=== PATIENT | female | born 1985 | race Caucasian/White ===

== ENCOUNTER → 2016-06-27 | Outpatient (CLI) | payer OTHER ==
[~2016-06-27] MED LIST: ALPR0.2550 PO; AMIT25TA9 PO; BETH10TA PO; Docusate Sodium PO; HYDR-1231 PO; HYDR-34 PO; HYDR-3583 PO; HYDR-3714 PO; HYDR-757 PO; HYDR1TAB PO; IBP600T1 PO; Ibuprofen PO; METR500T PO; NAPR-243 PO; PENT100C5 PO; TOPI25TA2 PO; YAZ
--- OUTSIDE RECORDS SUMMARY | 2016-06-27 10:02 | XMS REPORT | Continuity of Care Document ---
Author Author [facility] Organization [facility] Address Unknown Phone Unavailable Care Team Providers Care Transportation Assistant Name Role Phone ALLEN BETANCOURT MD PCP Insurance Providers Payer Name Policy Number Subscriber Name Relationship [employer] [id number] Leah Rosenbaum 18 Self / Same As Patient Advance Directives Directive Response Recorded Date/Time Advance Directives No 02/09/14 11:49pm Health Care Power of Senior Project Accountant No 02/09/14 11:49pm Organ Donor Yes 02/09/14 11:49pm Resuscitation Status Full Code 02/09/14 11:49pm Problems Medical Problems Problem Onset Date Status Abdominal pain, left lower quadrant Unknown Active Medications Medication Dose Route Sig Days/Qty Instructions Order Date Discontinued Date Status [Namrata] 04/10/09 04/14/10 Discontinued Metronidazole (Flagyl) 1 Each PO TWICE A DAY 7 Days 04/10/09 04/10/09 Discontinued Acetaminophen/Hydrocodone Bitart 1 Ea PO Q 4 - 6 HR PRN 10 Qty 01/15/10 Discontinued Naproxen 1 Each PO BID - TID PRN 60 Qty 01/15/10 Active Pentosan Polysulfate Sodium 100 Mg PO THREE TIMES A DAY 90 Qty Active Amitriptyline HCl (Elavil) 1 Each PO BEDTIME 30 Qty 04/20/10 Active Ibuprofen 600 Mg PO GIVE EVERY 6 HR ON SCHEDULE 40 Qty 04/20/10 Discontinued Acetaminophen/Hydrocodone Bitart 1 - 2 Each PO Q4HR PRN 15 Qty MAY TAKE ONE OR TWO TABS BY MOUTH 04/20/10 Active Ibuprofen 600 Mg PO EVERY 6 HOURS 40 Qty EVERY 6HRS NEEDED FOR PAIN 04/20/10 Active Acetaminophen/Hydrocodone Bitart 1-2 Each PO Q6HR PRN 20 Qty 02/10/14 Active Social History Social History Problem Response Recorded Date/Time Alcohol Use Denies Use 02/09/2014 11:49pm Recreational Drug Use No 02/09/2014 11:49pm Sexually Transmitted Disease No 02/09/2014 11:49pm Smoking Status Current Everyday Smoker 02/09/2014 11:49pm Query Response Start Date Stop Date Smoking Status Current Everyday Smoker Hospital Discharge Instructions No hospital discharge instructions. Plan of Care No plan of care. Functional Status No functional status results. Allergies, Adverse Reactions, Alerts Allergen Type Severity Reaction Status Last Updated Codeine Allergy Mild Active 04/10/09 Immunizations No immunization records. Vital Signs Acute Vital Signs Vital Response Date/Time Temperature (Fahrenheit) 98.4 degrees F (97.6 - 99.5) Temperature (Calculated Celsius) 36.39095 degrees C (36.4 - 37.5) Temperature Source Temporal Pulse Rate (adult) 87 bpm (60 - 90) Respiratory Rate 16 bpm (12 - 24) O2 Sat by Pulse Oximetry 99 % (88 - 100) Blood Pressure 144/88 mm Hg Pain Pain Intensity 7 Height (Feet) 5 feet Height (Inches) 11 inches Height (Calculated Centimeters) 180.544881 cm Weight (Pounds) 150 pounds Weight (Calculated Kilograms) 68.858450 kilograms Calculated BMI 20.92 Results Test Source Date Result Interp. Ref. Range Comments Alanine Aminotransferase (ALT/SGPT) January 12, 2012 11:15am 32 U/L N 30- 65 Albumin January 12, 2012 11:15am 3.7 G/DL N 3.4-5.0 Alkaline Phosphatase January 12, 2012 11:15am 81 U/L N 50-136 Aspartate Amino Transf (AST/SGOT) January 12, 2012 11:15am 13 U/L L 15- 37 BUN/Creatinine Ratio January 12, 2012 11:15am 10 - Basophils # (Auto) April 14, 2010 8:30am 0.1 10^3/uL N 0.0-0.1 Basophils (%) (Auto) April 14, 2010 8:30am 1 % N 0-10 Blood Urea Nitrogen January 12, 2012 11:15am 9 MG/DL N 7-18 Calcium Level January 12, 2012 11:15am 8.2 MG/DL L 8.5-10.1 Carbon Dioxide Level January 12, 2012 11:15am 29 MMOL/L N 21-32 Chloride Level January 12, 2012 11:15am 103 MMOL/L N 101-110 Creatinine January 12, 2012 11:15am 0.9 MG/DL N 0.6-1.3 Eosinophils # (Auto) April 14, 2010 8:30am 0.1 10^3/uL N 0.0-0.3 Eosinophils (%) (Auto) April 14, 2010 8:30am 2 % N 0-10 Glucose Level January 12, 2012 11:15am 84 MG/DL N 74-106 Hematocrit January 12, 2012 11:15am 39 % N 35-52 Hemoglobin January 12, 2012 11:15am 13.6 G/DL N 11.5-16.0 Lipase April 10, 2009 7:10pm 204 U/L N 114-286 Lymphocytes # (Auto) April 14, 2010 8:30am 1.9 X 10^3 N 1.0-4.0 Lymphocytes (%) (Auto) April 14, 2010 8:30am 28 % N 12-44 Mean Corpuscular Hemoglobin January 12, 2012 11:15am 31 PG N 25-34 Mean Corpuscular Hemoglobin Concent January 12, 2012 11:15am 35 G/DL N 32 -36 Mean Corpuscular Volume January 12, 2012 11:15am 88 FL N 80-99 Mean Platelet Volume January 12, 2012 11:15am 9.0 FL N 7.4-10.4 Monocytes # (Auto) April 14, 2010 8:30am 0.5 X 10^3 N 0.0-1.0 Monocytes (%) (Auto) April 14, 2010 8:30am 7 % N 0-12 Neutrophils # (Auto) April 14, 2010 8:30am 4.3 X 10^3 N 1.8-7.8 Neutrophils (%) (Auto) April 14, 2010 8:30am 62 % N 42-75 Platelet Count January 12, 2012 11:15am 284 10^3/uL N 130-400 Potassium Level January 12, 2012 11:15am 3.7 MMOL/L N 3.6-5.0 Red Blood Count January 12, 2012 11:15am 4.40 10^6/uL N 4.35-5.85 Red Cell Distribution Width January 12, 2012 11:15am 12.5 % N 10.0-14.5 Sodium Level January 12, 2012 11:15am 136 MMOL/L N 135-145 Total Bilirubin January 12, 2012 11:15am 0.3 MG/DL N 0.0-1.0 Total Protein January 12, 2012 11:15am 7.4 G/DL N 6.4-8.2 Urine Amorphous Sediment January 15, 2010 11:46am FEW CAIO URATES H - Has specimen been collected/obtained? YSpecimen Description CLEAN CATCH Urine Bacteria April 14, 2010 8:40am NEGATIVE - Has specimen been collected/obtained? YSpecimen Description CLEAN CATCH Urine Bilirubin April 14, 2010 8:40am NEGATIVE - Has specimen been collected/obtained? YSpecimen Description CLEAN CATCH Urine Casts April 14, 2010 8:40am NONE - Has specimen been collected/obtained? YSpecimen Description CLEAN CATCH Urine Clarity April 14, 2010 8:40am SLIGHTLY CLOUDY - Has specimen been collected/obtained? YSpecimen Description CLEAN CATCH Urine Color April 14, 2010 8:40am YELLOW - Has specimen been collected/obtained? YSpecimen Description CLEAN CATCH Urine Crystals April 14, 2010 8:40am NONE - Has specimen been collected/obtained? YSpecimen Description CLEAN CATCH Urine Culture Indicated April 14, 2010 8:40am NO - Has specimen been collected/obtained? YSpecimen Description CLEAN CATCH Urine Glucose (UA) April 14, 2010 8:40am NEGATIVE - Has specimen been collected/obtained? YSpecimen Description CLEAN CATCH Urine Ketones April 14, 2010 8:40am NEGATIVE - Has specimen been collected/obtained? YSpecimen Description CLEAN CATCH Urine Leukocyte Esterase April 14, 2010 8:40am NEGATIVE - Has specimen been collected/obtained? YSpecimen Description CLEAN CATCH Urine Mucus April 14, 2010 8:40am LARGE H - Has specimen been collected/obtained? YSpecimen Description CLEAN CATCH Urine Nitrite April 14, 2010 8:40am NEGATIVE - Has specimen been collected/obtained? YSpecimen Description CLEAN CATCH Urine Test April 20, 2010 8:00am NEGATIVE - Comments to Ironer: DS 5 Urine Protein April 14, 2010 8:40am TRACE - Has specimen been collected/obtained? YSpecimen Description CLEAN CATCH Urine RBC April 14, 2010 8:40am NONE /HPF - Has specimen been collected/obtained? YSpecimen Description CLEAN CATCH Urine Specific [place] April 14, 2010 8:40am 1.025 H - Has specimen been collected/obtained? YSpecimen Description CLEAN CATCH Urine Squamous Epithelial Cells April 14, 2010 8:40am TNTC H - Has specimen been collected/obtained? YSpecimen Description CLEAN CATCH Urine Urobilinogen April 14, 2010 8:40am NORMAL MG/DL - Has specimen been collected/obtained? YSpecimen Description CLEAN CATCH Urine WBC April 14, 2010 8:40am NONE /HPF - Has specimen been collected/obtained? YSpecimen Description CLEAN CATCH Urine pH April 14, 2010 8:40am 5.0 - Has specimen been collected/ obtained? YSpecimen Description CLEAN CATCH White Blood Count January 12, 2012 11:15am 7.9 10^3/uL N 4.3-11.0 Lab Scanned Report January 12, 2011 10:45am LAB Reports [id number] - Estimat Glomerular Filtration Rate January 12, 2012 11:15am > 60 - GFR INTERPRETIVE DATA UNITS FOR ESTIMATED GFR (eGFR): mL/min/1.73 M2 REFERENCE RANGE FOR ESTIMATED GFR (eGFR) eGFR NORMAL eGFR >60 MODERATELY DECREASED eGFR 30-59 SEVERLY DECREASED eGFR 15-29 KIDNEY FAILURE <15 (OR DIALYSIS) Urine RBC (Auto) April 14, 2010 8:40am NEGATIVE - Has specimen been collected/obtained? YSpecimen Description CLEAN CATCH MRSA Screen Nasal April 14, 2010 8:30am MRSA not isolated Procedures No known history of procedures. Encounters Encounter Location Date/Time Departed Emergency Room [facility] 02/09/14 11:38pm Recent Diagnosis
--- NOTE | 2016-06-27 10:44 | Diagnostic Imaging Report ---
Right breast ultrasound. INDICATION: Right nodule followup. Comparison exam from 12/07/2015, and 07/13/2015, reviewed. FINDINGS: Again seen in the periareolar region at 12 o'clock zone measuring 1.3 x 1.4 x 1.8 cm. This is an interval enlargement compared to the previous exam of mild degree. There is also now development of lobulations in the margins that were more smooth previously. There is still no shadowing. There is internal vascularity with color Doppler. IMPRESSION: Slightly enlarged 1.4-cm mass at 12 o'clock zone in the periareolar region with increased lobulations at its margins. An ultrasound-guided biopsy is recommended based on this change. The findings and recommendations were discussed with the patient in the radiology department at time of dictation. ACR BI-RADS Category 4A: Low suspicion of malignancy. Result letter will be mailed to the patient. Note: At least 10% of breast cancer is not imaged by mammography. Report was stat faxed to office of Lupe Alfred APRN, @ 10:42 AM/percy. Dictated by: Dictated on workstation # [id number]
== END ==
LOC: RAD 09:58
PROVIDERS: ATTEND Nurse Practitioner Family
DX: D24.1 Benign neoplasm of right breast (principal)

== ENCOUNTER → 2016-06-30 | Outpatient (CLI) | payer OTHER ==
[~2016-06-30] VITALS: Ht 177.8 cm; Wt 72.6 kg
[~2016-06-30] MED LIST changes: +LIDOCAINE 1% INJ 20 ML (XYLOCAINE) VIAL ONE
--- OUTSIDE RECORDS SUMMARY | 2016-06-30 12:46 | XMS REPORT | Continuity of Care Document ---
Author Author [facility] Organization [facility] Address Unknown Phone Unavailable Care Team Providers Care Integrity Director Name Role Phone ALLEN BETANCOURT MD PCP Insurance Providers Payer Name Policy Number Subscriber Name Relationship [employer] [id number] Leah Rosenbaum 18 Self / Same As Patient Advance Directives Directive Response Recorded Date/Time Advance Directives No 02/09/14 11:49pm Health Care Power of Drier No 02/09/14 11:49pm Organ Donor Yes 02/09/14 [...] F (97.6 - 99.5) Temperature (Calculated Celsius) 36.00446 degrees C (36.4 - 37.5) Temperature Source Temporal Pulse Rate (adult) 87 bpm (60 - 90) Respiratory Rate 16 bpm (12 - 24) O2 Sat by Pulse Oximetry 99 % (88 - 100) Blood Pressure 144/88 mm Hg Pain Pain Intensity 7 Height (Feet) 5 feet Height (Inches) 11 inches Height (Calculated Centimeters) 180.324589 cm Weight (Pounds) 150 pounds Weight (Calculated Kilograms) 68.178617 kilograms Calculated BMI 20.92 Results Test Source [...] 20, 2010 8:00am NEGATIVE - Comments to [employer]: DS 5 Urine Protein April 14, 2010 8:40am TRACE - Has specimen been collected/obtained? YSpecimen Description CLEAN CATCH Urine RBC April 14, 2010 8:40am NONE /HPF - Has specimen been collected/obtained? YSpecimen Description CLEAN CATCH Urine Specific [place] April 14, 2010 8:40am 1.025 H - [...] Report January 12, 2011 10:45am LAB Reports [id number] - Estimat Glomerular Filtration Rate January 12, [...] Encounter Location Date/Time Departed Emergency Room [facility] 02/09/14 11:38pm Recent Diagnosis
[2016-06-30 13:44] VITALS: BP 128/64
--- NOTE | 2016-07-01 12:01 | Diagnostic Imaging Report ---
EXAMINATION: Vacuum-assisted ultrasound-guided biopsy of breast mass right. A metallic clip placed to ramone biopsy site. INDICATION: Right breast mass. CONSENT: Informed consent was obtained from the patient. The risks, benefits, potential complications and alternatives were reviewed and all questions answered to the patient's satisfaction. FINDINGS: Ultrasound images demonstrate a right breast mass. PROCEDURE: After sterile preparation and draping, 1% lidocaine was utilized for local anesthesia. A vacuum-assisted biopsy device with 14-gauge needle was introduced under live ultrasound guidance into the lesion. Good needle position was documented with ultrasound images. A metallic clip was placed to ramone the site of the biopsy. A subsequent mammogram is performed and confirms the proper positioning of the clip. Multiple samples were obtained and sent to pathology. The patient tolerated the procedure well with no immediate complications. IMPRESSION: Successful ultrasound-guided biopsy of 12:00 periareolar right breast mass. A metallic clip placed to ramone biopsy site. Dictated by: Dictated on workstation # [id number]
== END ==
LOC: RAD 12:29
PROVIDERS: ATTEND Nurse Practitioner Family
DX: N63 Unspecified lump in breast (principal)
CPT/HCPCS: 19083; 88305

== ENCOUNTER 2017-08-22 05:33 | Outpatient (CLI) | payer OTHER ==
[~2017-08-22] VITALS: Ht 177.8 cm; Wt 72.6 kg
[~2017-08-22 05:33] MED LIST changes: -LIDOCAINE 1% INJ 20 ML (XYLOCAINE) VIAL ONE
[2017-08-22] MEDS ORDERED: METO-387 PO (08:51)
[2017-08-22] MEDS ORDERED: ALPR0.254 PO (08:51)
[2017-08-22] MEDS ORDERED: SUCR1TAB PO (08:51)
== END 2017-08-22 08:56 ==
LOC: PREOP 05:33
PROVIDERS: ATTEND Surgery
DX: Z01.818 Encounter for other preprocedural examination (principal); R13.10 Dysphagia, unspecified

== ENCOUNTER 2017-08-29 09:03 | Day surgery (SDC) | payer OTHER ==
[~2017-08-29] VITALS: Ht 177.8 cm; Wt 72.6 kg
[~2017-08-29 09:03] MED LIST changes: +ALPR0.254 PO; +METO-387 PO; +SUCR1TAB PO
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
[2017-08-29] MEDS ORDERED: LACTATED RINGERS 1,000 ML IV STA (09:12)
[2017-08-29 09:15] VITALS: BP 113/71
--- NOTE | 2017-08-29 09:20 | Progress Note-Pre Operative ---
Pre-Operative Progress Note H&P Reviewed The H&P was reviewed, patient examined and no changes noted. Date Seen by Provider: Aug 29, 2017 Time Seen by Provider: : Date H&P Reviewed: Aug 29, 2017 Time H&P Reviewed: :19 Pre-Operative Diagnosis: gerd dysphagia KALEN CORLEY DO Aug 29, 2017 09:20
[2017-08-29] MEDS ORDERED: HURRICAINE EXT TUBE (BENZOCAINE) ONE (09:34)
[2017-08-29] MEDS ORDERED: proPOfol 200 MG/20 ML (DIPRIVAN) VIAL IV ONE (09:50)
[2017-08-29] MEDS ORDERED: MIDAZOLAM 2 MG/2 ML (VERSED) VIAL ONE (09:51)
[2017-08-29] MEDS ORDERED: LIDOCAINE PF 2% 5 ML (XYLOCAINE) VIAL ONE (09:51)
[2017-08-29] MEDS ORDERED: HURRICAINE EXT TUBE (BENZOCAINE) XX ONE (10:00)
--- NOTE | 2017-08-29 10:21 | Progress Note-Post Operative ---
Post-Operative Progess Note Surgeon (s)/Area Operations Director (s) Surgeon KALEN CORLEY DO Area Operations Director: na Pre-Operative Diagnosis gerd dysphagia Post-Operative Diagnosis gastritis, small hiatal hernia Procedure & Operative Findings Date of Procedure 08/29/17 Procedure Performed/Findings egd c biopsies Anesthesia Type per plant technician Estimated Blood Loss Estimated blood loss (mL): scant Specimens/Packing Specimens Removed antrum, ge junction KALEN CORLEY DO Aug 29, 2017 10:21
[2017-08-29] MEDS ORDERED: PANT40TA2 PO (10:23)
--- NOTE | 2017-08-29 10:25 | Discharge Inst-Simple/Standard ---
Discharge Inst-Standard Discharge Medications New, Converted or Re-Newed RX: Transmitted to Pharmacy Patient Instructions/Follow Up Plan of Care/Instructions/FU: 3 weeks Anthony Activity as Tolerated: Yes Discharge Diet: Regular Diet KALEN CORLEY DO Aug 29, 2017 10:25
[2017-08-29 10:30] VITALS: BP 134/58
[2017-08-29 10:35] VITALS: BP 134/58
--- NOTE | 2017-08-29 10:46 | Anesthesia-General Post-Op ---
MAC Patient Condition Mental Status/LOC: Same as Preop Cardiovascular: Satisfactory Nausea/Vomiting: Absent Respiratory: Satisfactory Pain: Controlled Complications: Absent Post Op Complications Complications None Follow Up Care/Instructions Patient Instructions None needed. Anesthesiology Discharge Order Discharge Order Patient is doing well, no complaints, stable vital signs, no apparent adverse anesthesia problems. No complications reported per nursing. AMBER GUTIÉRREZ CRNA Aug 29, 2017 10:46
[2017-08-29 11:00] VITALS: BP 121/77
[2017-08-29 11:10] VITALS: BP 121/77
--- NOTE | 2017-08-29 17:35 | OPERATIVE REPORT ---
DATE OF SERVICE: 08/29/2017 PREOPERATIVE DIAGNOSES: Gastroesophageal reflux disease, dysphagia. POSTOPERATIVE DIAGNOSES: Gastritis, small hiatal hernia. PROCEDURE: EGD with biopsy. SURGEON: Kalen Cruz DO ANESTHESIA: Per RADIOISOTOPE TECHNICIAN. ESTIMATED BLOOD LOSS: Scant. COMPLICATIONS: None. INDICATIONS: The patient is a 32-year-old female, who has been having some dysphagia and reflux symptoms. She understands risks and benefits of procedure and wished to proceed with procedure. Consent was on chart. DESCRIPTION OF PROCEDURE: The patient was taken to the endoscopy suite, placed in left lateral recumbent position. Timeout was performed. Scope inserted in the mouth, down the esophagus, stomach and into the duodenum. There are no polyps, mass or ulcerations within the duodenum. Scope was slowly retracted back into the stomach where further insufflated. Slight erythematous changes and change consistent with some slight gastritis. Biopsy of the antrum was obtained. Scope was retroflexed noting a small hiatal hernia, no other pathology. Scope was returned to its normal position, slowly withdrawn in the distal esophagus. Biopsy of the GE junction was obtained. Scope was then slowly retracted back noting no other pathology until completely removed. The patient tolerated procedure well without complications. She was taken to recovery room in stable condition. RECOMMENDATIONS: The patient will be started on Protonix 40 mg daily. She will follow up in the office approximately 3 weeks to discuss pathology results and see how her symptoms are doing at that time. Job ID: [id number] DocumentID: [id number] Dictated Date: 08/29/2017 10:27:40 Drilling Rig Operator Date: 08/29/2017 17:35:28 Dictated By: KALEN CRUZ DO
== END 2017-08-29 11:15 | disposition home or self-care (01) ==
LOC: ENDO 09:03
PROVIDERS: ATTEND Surgery
DX: K29.70 Gastritis, unspecified, without bleeding (principal); K21.9 Gastro-esophageal reflux disease without esophagitis; K44.9 Diaphragmatic hernia without obstruction or gangrene; I10 Essential (primary) hypertension; R00.2 Palpitations; F41.9 Anxiety disorder, unspecified; F17.210 Nicotine dependence, cigarettes, uncomplicated; Z79.899 Other long term (current) drug therapy

== ENCOUNTER → 2019-10-29 | Outpatient (CLI) | payer OTHER ==
[~2019-10-29] MED LIST changes: +HYDR-4226 PO; -HYDR-757 PO; -METO-387 PO; +MTP25TSR PO; +PANT40TA2 PO
--- NOTE | 2019-10-29 12:38 | Diagnostic Imaging Report ---
INDICATION: Right lower quadrant pain. TIME OF EXAM: 10:28 AM. FINDINGS: The bowel gas pattern is unremarkable. There is no free air. Several calcific densities are identified in the pelvis, most numerous on the right. While many of these may represent phleboliths, the possibility of distal ureteric calculi cannot be entirely excluded. No definite renal calculi are seen. The bony structures are unremarkable. IMPRESSION: Pelvic calcifications, as described. If there is concern for urinary tract calculi, CT of the urinary tracts may be useful for further evaluation. Dictated by: Dictated on workstation # [id number]
== END ==
LOC: RAD 09:49
PROVIDERS: ATTEND Nurse Practitioner Family
DX: M61.40 Other calcification of muscle, unspecified site (principal); R10.31 Right lower quadrant pain
CPT/HCPCS: 74018